=== PATIENT | male | born 1955 | race Caucasian/White ===

== ENCOUNTER 2024-01-30 06:23 | Day surgery (SDC) | payer OTHER, SELFPAY ==
[2024-01-30] VITALS (9 sets, daily range): BP systolic 98–145; BP diastolic 70–87; BMI 28.2
[2024-01-30] MEDS: LOW STRENGTH ASPIRIN 81 MG PO (07:28)
[2024-01-30 07:30] LABS: Hematocrit 33.8 % (39.0-52.0); Mean Corp Hgb Conc. 32.5 g/dL (33.0-37.0); Mean Corpuscular Hgb 32.4 pg (27.0-31.0); Mean Corpuscular Volume 99.4 fL (80.0-94.0); Mean Platelet Volume 8.3 fL (7.4-10.4); Platelet Count 380 10^3/uL (130-400); Red Cell Dist. Width 17.1 % (11.5-14.5); White Blood Cell Count 8.2 10^3/uL (4.8-10.8)
[2024-01-30 07:43] LABS: Blood Urea Nitrogen 19 mg/dl (9-20); Carbon Dioxide 25 mmol/L (22-30); Chloride 106 mmol/L (98-107); Estimated Creatinine Clearance 95 ml/min; Glucose 117 mg/dl (70-99); Sodium 138 mmol/L (135-145); eGFR > 60.00
[2024-01-30] MEDS: NSS 1000 IV (09:32)
[2024-01-30 09:43] LABS: Glucose - Point of Care 104 mg/dl (70-99)
[2024-01-30 10:27] LABS: HDL Cholesterol 46 mg/dl; LDL Cholesterol, Calculated 56 mg/dl; Total Cholesterol 122 mg/dl (50-199); Triglyceride 103 mg/dl (10-149); Very Low Density Lipoprotein 20 mg/dl (0-30)
--- NOTE | 2024-01-30 11:03 | PTCARENOTE ---
Dr Dexter at pt bedside speaking to pt and pt's .
--- NOTE | 2024-01-30 11:46 | PTCARENOTE ---
IV team at pt bedside to de access pt's right port.
--- NOTE | 2024-01-30 13:46 | ITS.CL.CATH ---
[facility] - Catheterization
Cardiac Catheterization
Procedure Report:
LEFT HEART CATHETERIZATION
Date of Procedure: January 30, 2024
Procedures performed:
1: Coronary angiography
2: Left ventriculography
Primary Care Physician: Dr. Esperanza Cruz
Primary Tire Shop Manager: Myself
INDICATION: The patient is a 68-year-old man with a past medical history of coronary artery disease, aortic stenosis, dynamic LV outflow tract obstruction, [id number] diabetes mellitus, and hyperlipidemia who was recently diagnosed with
pancreatic cancer who has undergone chemotherapy and is now being evaluated for eligibility for a possible Whipple operation. He underwent cardiac catheterization in 2010 which revealed a high-grade ostial first obtuse marginal branch lesion. He
has been asymptomatic without angina and continues to be asymptomatic. Echocardiography performed on October 17 showed mild aortic valvular stenosis with a preserved left ventricular ejection fraction. The patient does have moderate concentric left
ventricular hypertrophy with basal septal hypertrophy and evidence of left ventricular outflow tract obstruction which is associated with systolic anterior motion of the mitral valve leaflets. Despite this, there is only mild mitral regurgitation
at the time of the echo and Valsalva only mildly increased gradients. Exercise Lexiscan Myoview was performed on October 25 where the patient walked 4 minutes and 54 seconds on a Isaias protocol and was given Lexiscan vasodilator. Nuclear perfusion
imaging suggested mild anterolateral ischemia and moderate inferior/inferolateral ischemia. In light of these findings he is referred for cardiac catheterization.
ACCESS: The patient was prepped and draped in usual sterile fashion. A 6 Latvian sheath was placed in the right radial artery using the Seldinger over the wire technique.
HEMODYNAMIC FINDINGS (mmHg):
LV(s/d,EDP): 114/8, 11
Ao(s/d,m): 107/65, 84
Mean aortic valve gradient: As low as 7 and as high as 17 mmHg depending on loading conditions/LV filling pressures
Of note: Post PVC beats resulted in a dramatic increase in LV outflow tract gradients consistent with dynamic LV outflow tract obstruction.
ANGIOGRAPHIC FINDINGS:
Single-plane Left Ventriculography in [place] Projection: Hyperdynamic LV systolic function with a visually estimated ejection fraction of 75%. Unable to accurately assess MR due to catheter induced ectopy.
Coronary Angiography:
Dominance: Right
Left Main: Large, widely patent.
Left Anterior Descending: The left anterior descending artery has moderate to severe proximal and mid calcification. There is a smooth proximal 30 to 40% stenosis. The LAD gives rise to a medium caliber but long length major diagonal branch that
has diffuse moderate proximal disease. This appears worse than on prior angiography in 2011. The distal vessel has normal flow. The LAD has a calcified 60 to 70% stenosis just after the takeoff of the major diagonal branch. This also appears
worse compared to prior angiography in 2011. The distal LAD has a smooth calcified 50% stenosis. There is normal distal flow to the apex.
Left Circumflex: The left circumflex is a medium caliber vessel that is also heavily calcified in the AV groove. First obtuse marginal branch has a true ostial 90% stenosis with normal distal flow and a medium caliber OM1. This appears unchanged
from prior angiography in 2011. The distal circumflex gives rise to a smaller second obtuse marginal branch that has moderate nonobstructive luminal irregularities with normal flow.
Right Coronary: The right coronary artery was tremendously challenging to engage due to a anterior takeoff. Ultimately a 6 Latvian multipurpose catheter was used for engagement. The right coronary artery is moderately calcified throughout the AV
groove but has no focal obstructive disease. The posterior descending artery is flush occluded and fills via left to right collaterals. The distal PLV branch system gives rise to 3 medium caliber vessels. The distal trifurcation has severe small
vessel disease with total occlusion and bridging collateral filling of the medial branch, normal flow into the middle branch, and slow flow into the distal small caliber posterior left ventricular branch.
Fluoroscopy Time (min): 20
Radiation Dose (mGy): 955
DAP (Gy.cm2): 71
Closure device: None. A TR band was applied for hemostasis at the right wrist.
Complications: None.
ASSESSMENT:
1: Severe multi vessel coronary disease as described above. While the critical OM1 lesion appears unchanged from 2011, there is progressive distal disease in the right PLV branch system, interval occlusion of the right posterior descending artery,
and progressive focal mid LAD and distal LAD disease as described above.
2: Preserved LV systolic function.
3: Milder at worst moderate aortic stenosis with a clear component of dynamic LV outflow tract obstruction. This may also account for intermittent systolic anterior motion of the mitral valve and dynamic mitral regurgitation however this was not
demonstrated during this procedure today.
CONCLUSIONS and RECOMMENDATIONS:
1: Continue aggressive medical therapy for diffuse coronary artery disease. Given the fact that his LV function is normal and he has no typical angina, I am reticent to proceed with anything other than medical therapy. I will discuss this with his
surgical team from [facility] and come up with a perioperative plan. He is clearly at high risk for complications however I do not think this is prohibitive and defining his therapeutic options with pancreatic cancer is clearly the priority.
2: Close clinical follow-up as scheduled.
Ana Dexter M.D.
Copy to: Dr. Esperanza Cruz, Dr. John Pina @[facility] fax [phone]
[2024-01-31 09:39] LABS: Glycohemoglobin (HgbA1c) 5.3 % (4.0-5.6)
== END 2024-01-30 12:04 | disposition home or self-care (01) ==
LOC: CATH 06:23
PROVIDERS: ATTENDING PHYSICIAN Internal Medicine Interventional Cardiology; PRIMARYCARE PHYSICIAN Internal Medicine
DX: I25.10 Atherosclerotic heart disease of native coronary artery without angina pectoris (principal); I10 Essential (primary) hypertension; E78.5 Hyperlipidemia, unspecified; I08.0 Rheumatic disorders of both mitral and aortic valves; E11.9 Type 2 diabetes mellitus without complications; K21.9 Gastro-esophageal reflux disease without esophagitis; G47.33 Obstructive sleep apnea (adult) (pediatric); Z85.07 Personal history of malignant neoplasm of pancreas; Z79.82 Long term (current) use of aspirin; Z79.84 Long term (current) use of oral hypoglycemic drugs
CPT/HCPCS: C1887; C1894; 80048; 80061; 82962; 83036; 85027; 93005; 93458; Q9967